=== PATIENT | male | born 1965 | race Caucasian/White ===

== ENCOUNTER 2022-08-26 07:25 | Outpatient (CLI) | payer OTHER, SELFPAY ==
[2022-08-26 13:54] LABS: Albumin* 5.1 g/dL (3.3-5.0); Chloride* 101 mmol/L (96-114); Potassium* 4.8 mmol/L (3.6-5.1); Sodium* 137 mmol/L (135-149)
[2022-08-26 13:56] LABS: Cholesterol* 222 mg/dL (90-199); Creatinine* 0.9 mg/dL (0.5-1.5); Estimated Glomerular Filt Rate 99 ml/min
[2022-08-26 13:57] LABS: Alanine Aminotransferase* 18 U/L (4-50); Alkaline Phosphatase* 81 U/L (40-150); Aspartate Amino Transferase* 29 U/L (12-35); Bilirubin Total* 0.8 mg/dL (0.1-1.5); Blood Urea Nitrogen* 19 mg/dL (7-30); Carbon Dioxide* 26 mmol/L (20-32); Glucose* 107 mg/dL (60-115); Triglycerides* 157 mg/dL (40-149)
[2022-08-26 13:58] LABS: HDL Cholesterol* 60 mg/dL (>=40); LDL Cholesterol Calculated 131 mg/dL (<100)
[2022-08-26 14:14] LABS: Total Protein* 8.1 g/dL (6.0-8.3)
== END 2022-08-26 07:26 | disposition home or self-care (01) ==
PROVIDERS: PCP Physician Assistant Medical; Visit Provider Physician Assistant Medical
DX: E78.00 Pure hypercholesterolemia, unspecified (principal); I10 Essential (primary) hypertension; R79.89 Other specified abnormal findings of blood chemistry
CPT/HCPCS: 80053; 80061

== ENCOUNTER 2023-01-20 07:32 | Outpatient (CLI) | payer OTHER, SELFPAY | END 2023-01-20 07:33 | disposition home or self-care (01) | LOC: NFLDREF 01-22 01:36 | PROVIDERS: PCP Physician Assistant Medical; Referring Provider Physician Assistant Medical; Visit Provider Physician Assistant Medical | DX: E78.00 Pure hypercholesterolemia, unspecified (principal); K76.0 Fatty (change of) liver, not elsewhere classified | CPT/HCPCS: 80061; 80076 ==

== ENCOUNTER 2023-10-12 07:56 | Outpatient (CLI) | payer OTHER, SELFPAY | END 2023-10-12 07:57 | disposition home or self-care (01) | PROVIDERS: PCP Physician Assistant Medical; Visit Provider Physician Assistant Medical | DX: E78.2 Mixed hyperlipidemia (principal); Z12.5 Encounter for screening for malignant neoplasm of prostate | CPT/HCPCS: 80053; 80061; 84153 ==

== ENCOUNTER 2024-06-12 12:17 | Outpatient (CLI) | payer OTHER, SELFPAY ==
--- NOTE | 2024-06-12 13:48 | W.ANESCHARGE ---
Anesthesia Charges Start Date/Time Anesthesia Start Date: 06/12/24 Anesthesia Start Time: 13:10 Stop Date/Time Anesthesia Stop Date: 06/12/24 Anesthesia Stop Time: 13:44
== END 2024-06-12 12:18 | disposition home or self-care (01) ==
LOC: OP CLINIC 12:18
PROVIDERS: PCP Physician Assistant Medical; Visit Provider Surgery
DX: Z12.11 Encounter for screening for malignant neoplasm of colon (principal); K63.5 Polyp of colon; K57.30 Diverticulosis of large intestine without perforation or abscess without bleeding
CPT/HCPCS: 00811; 45385; 88305; J2704

== ENCOUNTER 2024-11-27 08:16 | Outpatient (CLI) | payer OTHER, MEDICAID, SELFPAY | END 2024-11-27 08:17 | disposition home or self-care (01) | LOC: NFLDREF 11-29 01:17 | PROVIDERS: PCP Physician Assistant Medical; Referring Provider Physician Assistant Medical; Visit Provider Physician Assistant Medical | DX: E78.00 Pure hypercholesterolemia, unspecified (principal); I10 Essential (primary) hypertension; R53.83 Other fatigue | CPT/HCPCS: 80053; 80061; 84443 ==

== ENCOUNTER 2024-11-29 07:42 | Outpatient (CLI) | payer OTHER, MEDICAID, SELFPAY | END 2024-11-29 07:43 | disposition home or self-care (01) | PROVIDERS: PCP Physician Assistant Medical; Visit Provider Physician Assistant Medical | DX: F31.9 Bipolar disorder, unspecified (principal); I10 Essential (primary) hypertension; G25.0 Essential tremor; E78.5 Hyperlipidemia, unspecified; N52.9 Male erectile dysfunction, unspecified; R53.83 Other fatigue; E78.00 Pure hypercholesterolemia, unspecified; Z12.5 Encounter for screening for malignant neoplasm of prostate | CPT/HCPCS: 82306; 82607; 82728; 84403; G0103 ==

== ENCOUNTER 2024-12-05 10:12 | Outpatient (CLI) | payer OTHER, MEDICAID, SELFPAY | END 2024-12-05 10:13 | disposition home or self-care (01) | LOC: US 10:12 | PROVIDERS: PCP Physician Assistant Medical; Visit Provider Physician Assistant Medical | DX: R79.89 Other specified abnormal findings of blood chemistry (principal); K76.0 Fatty (change of) liver, not elsewhere classified | CPT/HCPCS: 76705 ==

== ENCOUNTER 2025-02-28 08:41 | Outpatient (CLI) | payer OTHER, MEDICAID, SELFPAY ==
--- NOTE | 2025-02-28 09:00 | CRLHL7_ITS ---
For Patients: As a result of the Cures Act, medical imaging exams and procedure reports are released immediately into your electronic medical record. You may view this report before your referring provider. If you have questions, please contact your health care provider. INDICATION: Lung cancer screening. History of smoking. High risk patient with greater than 20 pack-year smoking history. TECHNIQUE: Low-dose lung cancer screening non-contrast CT chest. Dose reduction techniques were used. COMPARISON: None. FINDINGS: NODULES: 3 millimeter noncalcified nodule right lower lobe anteriorly, 3/100. 1 millimeter calcified nodule right lower lobe, 3/102. 3 millimeter nodule left upper lobe, 3/50. Additional tiny calcified granuloma within the superior segment left lower lobe. LUNGS AND PLEURA: Mild emphysema, centrilobular. Mild scarring within the right lower lobe. No pleural effusion. MEDIASTINUM: No adenopathy. Mild prominence of the ascending aorta measuring 4.2 cm. CORONARY ARTERY CALCIFICATION: Present. LIMITED UPPER ABDOMEN: Unremarkable. 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 IMPRESSION: Negative for lung cancer screening purposes. LUNG-RADS CATEGORY: 2: Benign. RADIOLOGIST RECOMMENDATION: Continue annual screening with low-dose CT chest in 12 months. Please note that all CT scans at this facility use dose modulation, iterative reconstruction, and/or weight-based dosing when appropriate to reduce radiation dose to as low as reasonably achievable. Dictated by Matteo Sterling MD @ 02/28/2025 12:19:47 PM (Electronically Signed)
== END 2025-02-28 08:42 | disposition home or self-care (01) ==
LOC: CT 08:42
PROVIDERS: PCP Physician Assistant Medical; Visit Provider Physician Assistant Medical
DX: Z12.2 Encounter for screening for malignant neoplasm of respiratory organs (principal); Z72.0 Tobacco use
CPT/HCPCS: 71271

== ENCOUNTER 2025-04-11 13:18 | Outpatient (CLI) | payer OTHER, MEDICAID, SELFPAY | END 2025-04-11 13:19 | disposition home or self-care (01) | LOC: FRMREF 13:19 | PROVIDERS: PCP Physician Assistant Medical; Visit Provider Physician Assistant Medical | DX: S50.861A Insect bite (nonvenomous) of right forearm, initial encounter (principal) | CPT/HCPCS: 86618 ==